=== PATIENT | female | born 1965 | race Caucasian/White ===

== ENCOUNTER 2016-07-28 12:17 | Inpatient (IN) | payer OTHER ==
[~2016-07-28] VITALS: Ht 160 cm; Wt 75.6 kg
[2016-07-28] VITALS (11 sets, daily range): BP systolic 116–147; BP diastolic 58–99; PULSE 61–76; RESP 14–19; O2SAT 93–97
[~2016-07-28 12:17] MED LIST: ATEN100T PO; ATOR20TA PO; CELE200C PO; GABA600T2 PO; INDA1.252 PO; LOSA50TA37 PO; Lactated Ringer's 1,000 ML IV ONE; METF500T PO; OMEP20TA86 PO; SERT25TA2 PO; Vancomycin Inj 1,000 MG in IV Premix 1 EACH IV ONE
[2016-07-28] MEDS ORDERED: Vancomycin 1,000mg/200 mL NS IV ONE (12:35)
[2016-07-28] MEDS ORDERED: CeFAZolin Inj 2 gm / 50mL D5W IV ONE (12:35)
--- NOTE | 2016-07-28 12:53 | PCM.HPANE ---
Patient Data Surgeon Admitting Provider: Attending Provider:Paul Sears MD Primary Care Physician:Griselda Rogers Other Provider: Reason for Visit Left Knee Arthritis LEFT KNEE ARTHRITIS Ht/WT & BMI Height (Feet): 5 Height (Inches): 3 Weight (Kilograms): 75.6 Body Mass Index 29.00 Allergies Coded Allergies: ceftriaxone (Verified Allergy, Unknown, 12/26/15) clindamycin (Verified Allergy, Unknown, 12/26/15) Past Anesthesia History Anesthesia History: Denies:: Abnormal Airway, Anesthesia Reactions, Difficult Intubation, Fam Anesthesia Reaction (dad with ether) Diabetes History Hx Diabetes?: Yes Type of Diabetes: Type II Glycemic Control: Oral Medication Current Bedside Blood Glucose: 126 MRSA MRSA: No Medications Hypertension Medication: Yes Home Meds Incl Beta Dany: No Reported Medications Metformin (Glucophage)500 Mg [id number] Mg PO BID Ref 0 07/25/16 Indapamide 1.25 Mg Tablet1.25 Mg PO DAILY #30 TABLET 07/24/16 Losartan Potassium 50 Mg Fhejnu620 Mg PO DAILY 07/24/16 Atorvastatin (Lipitor)20 Mg Hgcgaz63 Mg PO DAILY Ref 0 07/24/16 Sertraline HCl (Zoloft)25 Mg Olpppo34 Mg PO DAILY 30 Days Ref 0 07/24/16 Omeprazole 20 Mg Tablet.dr20 Mg PO DAILY 07/24/16 Gabapentin 600 Mg Oxisfp855 Mg PO TID Ref 0 07/24/16 Celecoxib (Celebrex)200 Mg Uowywmf709 Mg PO DAILY #30 CAPSULE Ref 0 07/24/16 Discontinued Reported Medications Atenolol 100 Mg Nfbqpz135 Mg PO DAILY Ref 0 07/24/16 History History of ENT Problems?: No HEENT History: Denies:: Abnormal Airway Cataracts Difficult Intubation Dysphagia Glaucoma Hearing Problem Sinus Problem TMJ Hx of Heart Problems?: Yes Cardiovascular History: Positive for:: Atrial Fibrillation (paroxysmal flutter - not for a "while") Hypertension Irregular Heartbeat (a fib) Denies:: AICD Chest Pain Congestive Heart Failure Coronary Artery Disease Edema Heart Murmur Pacemaker Peripheral Vascular Rheumatic Fever Hx of Respiratory Problem?: No Respiratory History: Denies:: Asthma COPD Emphysema Oxygen Administration Pneumonia Tuberculosis Use of C-PAP Machine Hx Neurologic Problems?: Yes Neurological History: Positive for:: Headaches (not often) Seizures (as child, not since age 2 ) Denies:: CVA Multiple Sclerosis Parkinson's Disease Hx of GI Problems?: Yes Gastrointestinal History: Positive for:: Gastroesphageal Reflux Denies:: Gall Bladder Disease Hepatitis Hiatal Hernia Liver Disease Hx of Problems?: No Genitourinary History: Denies:: Kidney Stones Urinary Tract Infection Female Hx: Denies:: Currently (HX OF TUBAL AND ABLATION) Problems with Breasts? Skin History: Denies:: History Skin Disorders? Pressure Ulcers Hx Musculoskeletal Problems?: Yes Musculoskeletal History: Positive for:: Back Injury (low back fusion) Musculoskeletal Trauma (left knee current admission problem) Osteoarthritis Denies:: Fibromyalgia Joint Replacement Myasthenia Gravis Hx of Psycho/Social Problems?: Yes Psycho Social History: Positive for:: Anxiety Hx Depression Hx Surgeries?: Yes (GILBERTO KNEE;GILBERTO SHOULDER; TUBAL; 2 BLADDER, lumbar fusion) Hx Any Other Health Problems?: Yes Other History: Denies:: Cancer Thyroid Disease History Blood Transfusions: Positive for:: Accept Blood Products? Denies:: Blood Transfusions Hx Diabetes: YesBedside Blood Glucose: 126 Hx Alcohol Use: NoAlcoholic Drinks Per Day: rarely- yearly maybeHx Substance Use: No Smoking Status: Never Smoker Have You Smoked inLast 12 mo: No Stop/Bang Treated for Sleep Apnea?: No Do You Have a CPAP Machine?: No S-Snoring: Do You Snore Loudly: No T-Tired: feel tired, fatigued: No O-Obsered: Observed not breath: No P-Blood Pressure: treated: Yes B- Body Mass Index > 35 kg/m2: No A- Age over 50: Yes N- Neck Large Circumference: No G- Gender Male: No DEACON Total Score: 2 DEACON Risk Assessment: Low Risk, <3 Yes Risk Assessment Category Category 1A: Patient has history of documented sleep apnea, and HAS NOT received any narcotic, sedative or anesthesia administration during this stay. Category 1B: Patient has history of documented sleep apnea, and HAS received any narcotic , sedative or anesthesia administration during this stay Category 2: Patient has SUSPECTED Obstructive Sleep Apnea, and HAS received any narcotic , sedative or anesthesia administration during this stay. Category 3: Patient has SUSPECTED Obstructive Sleep Apnea and HAS NOT received narcotic, sedative or anesthesia administration during this stay. Category 4: Outpatient in Procedural Areas with known sleep apnea or who screen positive for High Risk via the STOP/BANG questionnaire. Exam Exam Vital Signs Vital Signs Date Time Temp Pulse Resp B/P Pulse Ox O2 Delivery O2 Flow Rate FiO2 07/28/16 12:42 36.1 76 17 147/99 96 Room Air General Appearance: Oriented X3 HEENT/AIRWAY: MP 2 Lungs: Normal Air Movement Heart: Regular Rate/Rhythm Meds/Labs/Diagnostics Admission Meds Current Medications Lactated Ringer's 1,000 ml @ 120 mls/hr Q8H20M ONCE IV Last administered on 12:35; Start 07/28/16 at 05:00; Stop 07/28/16 at 13:19 Vancomycin/0.9 % Sod Chloride/ Premix (Vancomycin Inj/ IV Premix) 200 ml @ 133.333 mls/hr PREOP ONCE IV Last administered on 07/28/16 12:41; Start 07/28 at 06:00; Stop 07/28/16 at 07:29; Status DC Bedside Blood Glucose: 126 Plan Impression Patient chart reviewed, patient interviewed and anesthestic plan with risks, benefits, and alternatives discussed, and informed consent obtained. NPO Status: 07/27/16 ASA Physical Status: ASA2 Mod Systemic Disease Anesthetic Plan: Regional Block, SAB Bene/Risks/Altern/Consents: Yes HP Complete Prior to Induction: Yes King Sanders MD Jul 28, 2016 12:53
--- NOTE | 2016-07-28 13:08 | PCM.ORTHOP ---
Orthopedic Operative Report Date of Service: Jul 28, 2016 Pre Operative Diagnosis Left knee degenerative joint disease Post Operative Diagnosis Same Procedure Left total knee arthroplasty Surgeon Surgeon: Paul Sears MD Assistants: Viktor Rene Indication for Procedure Degenerative joint disease left knee Findings Left knee grade 3/4 chondromalacia medial and lateral compartment Details of Procedure Implants / Components : Meseret Persona Femoral component: 5 narrrow Tibial component: D Tibial insert: 10 medial congruent Patellar component: 32 Anesthesia : GETA Antibiotics : Pre-operative IV antibiotics administered VTE prophylaxis : Teds / SCD's applied to contralateral lower extremity Specimens : none Complications: none Indications: Cara Malik is a 51-year-old female with complaints of progressive left knee pain for several months. Patient xrays were consistent with progressive degenerative joint disease. We, therefore, discussed surgical options / intervention in detail regarding total knee arthroplasty. Indications, risks, complications, potential outcomes and benefits were reviewed in detail within the context of the standard surgical consent form. Both written and verbal consent were obtained. All patient questions were answered. Anesthesia evaluation performed prior to operative intervention for evaluation of medical preparedness to undergo operative intervention and operative stress. Procedure: The patient was identified in the preoperative holding area and the operative extremity was marked. The patient was brought to the operating room and placed supine on the operating table. Operative and Surgical team standard pre- operative protocol was then performed including time-out. The patient then underwent general anesthesia performed by Anesthesia team. A femoral block was placed preoperatively. The patient was then appropriately positioned, all aspects well padded. The lower extremity was then prepped and draped using standard sterile technique. [place] bandage was then used followed by inflation of surgical tourniquet. A standard anterior midline incision to the knee was made using a scapel. Soft tissue exposure was then obtained down to the extensor mechanism. Medial and lateral full thickness skin flaps were developed. Medial para-patellar arthrotomy incision was then made. Synovectomy was performed with sharply dissection. Partial fat pad-ectomy was then performed , followed by subperiosteal soft tissue release of MCL utilizing electrocautery and blunt dissection. The patella was then everted. Osteophytes were removed with a rongeur. The patella was reamed using the patella reaming clamp. The appropriate sized 3 hole guide was then placed and 3 peg holes were then drilled with the positive stop drill. A provisional patella plate was then applied. The knee was then flexed to 90 degrees. The meniscal remnants and anterior cruciate ligament remnants were then excised. Exposure was obtained to the proximal tibia. Appropriate retractors were placed to gain adequate exposure and to ensure protection of all structures. Extra-medullary tibial guide was then applied and secured after judgements made regarding varus/valgus, rotation , and posterior slope. Tibial cutting guide was then secured and this cut was made, 10 mm from the lateral side. Attention was then turned toward the femur. The knee was maintained in 90 degrees of flexion, exposure was obtained of the distal femur. [place]'s line and the epicondylar axis were then marked. Intra-medullary access was then gained using a drill. The intramedullary femoral alignment guide was then introduced. The attached distal femoral cutting block was then secured and this cut was made. Sizing was then performed followed by four cut cutting guide application. After securing this guide, these cuts were made with retractor protection of all structures. A trial femur component was then placed and found to be satisfactory. Next, flexion and extension gaps were evaluated for space and ligamentous tension; they were noted to be symmetric in both flexion and extension. Final bone preparation of the femur was performed with stem punch for later acceptance of the femoral permanent component, as was sizing and drill preparation for the patellar component. Final bone preparation of the tibia was then performed with stem and fin punch. Sizing was performed with utilization of drop buck technology for maintenance of all parameters. Impression equipment with fin punch was then used for later acceptance of tibial flange. Trial components were then placed. Full extension was achieved, while obtaining stability in all degrees of knee flexion. The extensor mechanism was found to be well balanced without necessity for significant adjustment. All trial components were removed. Bone surfaces were then thoroughly cleansed and dried with utilization of multiple liters of pulsatile antibiotic irrigation.. Cement with antibiotic was mixed on the back table. The tibial component was cemented and impacted, followed by cementing and impaction of the femoral component. Finally, the patellar component was then cemented and impacted into position. . All excessive cement was removed from the surgical field. The knee was brought out into full extension as the cement was allowed to fully cure. The polyethylene tray was then inserted and secured. The tourniquet was released and hemostasis was achieved with compression and electrocautery. A local anesthetic concoction was injected in multiple soft tissue sites including bupivicaine 40mg, ketorolac, vancomycin, morphine and then exparel was used. Medial para-patellar arthrotomy incision was then secured with running barbed # 2 PDO/Stratafix in slight flexion. Next 2-0 vicryl sutures were used for the subcutaneous tissue. 3-0 stratafix running sutures were placed in the skin. Sterile dressing was applied, followed by a knee immobilizer. The patient was awakened from anesthesia, found to be neurovascularly intact, and taken to the recovery room in good condition. DAYCARE DIRECTOR SURGEON: During the operation, the services of physician clerical administrative assistant were medically indicated and necessary to provide exposure of the operative site for the surgical procedure and to maintain the limb in a proper position to carry out the operation safely and efficiently. Without the qualified registered nurse first assistant being present, it would have extended the operative procedure and made the procedure technically more difficult to perform. I discussed at length the risks, complications and implications of tobacco products and its effect on the treatment plan and outcomes. The patient has voiced understanding and has agreed to cease consumption of such products for a minimum of the duration of the entire course of treatment. Weight-bear as tolerated physical therapy. Dressing change in 2-3 days. Keep dressing clean dry and intact. Discharged on Xarelto 12 days, [place] and [place]. Keep abduction pillow on at all times when in bed for the next 4 weeks. Follow-up with PA in 2 weeks with dressing change with new Steri- Strips. Follow-up with PA in 6 weeks until fully mobilized. Patient may follow -up with me at 12 weeks if needed. Please keep the affected extremity elevated when possible. Continue posterior hip cautions. You may use ice and/or heat as needed for comfort. All questions and concerns were addressed with patient/ family. Please feel free to call with any further questions, comments, and/or concerns. Grafts, Implants: Implants-See Implant Record Complications There were no periprocedural complications identified. Condition Stable Anesthetic Administered: GA Catheters: None Output, Estimated Blood Loss: 50 Blood Admin during surgery: No Surgical Cast or Splint: Knee Immobilizer Surgical Specimen Removed: No Specimen sent to Pathology: No copies to: Paul Sears MD, Christopher L MD Jul 28, 2016 13:08
[2016-07-28] MEDS ORDERED: Sodium Biphos-Phos 133 mL Enema RECTAL PRN (13:10)
[2016-07-28] MEDS ORDERED: Vancomycin Dose per Pharmacist XX ONE (13:10)
[2016-07-28] MEDS ORDERED: Ketorolac 15 mg/mL Inj IVPUSH PRN (13:10)
[2016-07-28] MEDS ORDERED: diphenhydrAMINE 25 mg Capsule PO PRN (13:10)
[2016-07-28] MEDS ORDERED: Polyethylene Glycol (PEG) 17 Gm Powder PO PRN (13:10)
[2016-07-28] MEDS ORDERED: Magnesium Hydroxide 10 mL Oral Concentration PO PRN (13:10)
[2016-07-28] MEDS ORDERED: CeFAZolin Inj 2 GM in IV Premix 1 EACH IV ONE (13:15)
[2016-07-28] MEDS ORDERED: DEXTROSE 5% IV ONE (13:34)
[2016-07-28] MEDS ORDERED: GENTAMICIN IV ONE (13:34)
[2016-07-28] MEDS ORDERED: Lactated Ringer's 500 ML IV PRN (13:38)
[2016-07-28] MEDS ORDERED: Lactated Ringer's 1,000 ML IV SCH (13:38)
[2016-07-28] MEDS ORDERED: Atropine 0.4 mg/mL Inj IVPUSH PRN (13:40)
[2016-07-28] MEDS ORDERED: HYDROmorphone 1 mg/mL Inj IVPUSH PRN (13:40)
[2016-07-28] MEDS ORDERED: MetoCLOpramide 5 mg/mL 2 mL Inj IVPUSH PRN (13:40)
[2016-07-28] MEDS ORDERED: hydrALAZINE 20 mg/mL Inj IVPUSH PRN (13:40)
[2016-07-28] MEDS ORDERED: fentaNYL-PF 50 mCg/mL 2 mL Inj IVPUSH PRN (13:40)
[2016-07-28] MEDS ORDERED: Labetalol 5 mg/mL 4 mL Inj IV PRN (13:40)
[2016-07-28] MEDS ORDERED: EPHEDrine Sulfate 50 mg/mL Inj IVPUSH PRN (13:40)
[2016-07-28] MEDS ORDERED: Ondansetron 2 mg/mL 2 mL Inj IVPUSH PRN (13:40)
[2016-07-28] MEDS ORDERED: Phenylephrine 10,000 mCg/mL Inj IVPUSH PRN (13:40)
[2016-07-28] MEDS ORDERED: Bacitracin 50,000 unit Inj IRRIGATION ONE (14:31)
[2016-07-28] MEDS ORDERED: Hip/Knee Infiltration Cocktail IM ONE ×7 (15:07)
[2016-07-28] MEDS ORDERED: Bupivacaine Liposome 1.3% 20 mL Inj INFILTRATE ONE (15:08)
--- NOTE | 2016-07-28 16:38 | DRSVH ---
PROCEDURE: X-RAY LEFT KNEE, ONE OR TWO VIEWS ([id number]) INDICATIONS: s/p TKA TECHNIQUE: 3 view(s) of the knee acquired. COMPARISON: None. FINDINGS: Bones: Patient is status post knee joint arthroplasty. Hardware components are in expected position s. Visualized bony structures are intact. Soft tissues: Overlying postoperative changes are noted. IMPRESSION: Status post left knee arthroplasty as above. Dictated by: Nava Ramos M.D. on 07/28/2016 at 16:36 Approved by: Nava Ramos M.D. on 07/28/2016 at 16:37
[2016-07-28] MEDS ORDERED: Lidocaine PF 1% 30 mL Inj ONE (17:03)
[2016-07-28] MEDS ORDERED: fentaNYL-PF 50 mCg/mL 2 mL Inj ONE (17:03)
[2016-07-28] MEDS ORDERED: Propofol 10,000 mCg/mL 20 mL Inj ONE (17:03)
[2016-07-28] MEDS ORDERED: Ondansetron 2 mg/mL 2 mL Inj ONE (17:03)
[2016-07-28] MEDS: 0.9% Sodium Chloride 1,000 ML IV SCH ×2 (17:28→23:09)
[2016-07-28] MEDS: Sodium Chloride LOK Flush 10 mL Syringe IV SCH (17:29)
--- NOTE | 2016-07-28 17:33 | PCM.CONPHA ---
Subjective Date of Service: Jul 28, 2016 Reason for Pharmacy Consult: Vancomycin Dosing Objective Vital Signs Date Time Temp Pulse Resp B/P Pulse Ox O2 Delivery O2 Flow Rate FiO2 07/28/16 17:07 36.6 61 16 125/81 96 Room Air 07/28/16 16:59 14 94 07/28/16 16:55 36.1 63 14 116/63 94 Room Air 07/28/16 16:40 71 15 128/65 93 Room Air 07/28/16 16:35 66 14 121/67 93 Room Air 07/28/16 16:30 72 14 127/67 95 Room Air 07/28/16 16:25 76 19 124/66 96 Room Air 07/28/16 16:25 15 95 07/28/16 16:22 36.4 122/58 07/28/16 12:42 36.1 76 17 147/99 96 Room Air Weight (Kilograms): 75.6 Height (Feet): 5 Height (Inches): 3 Assessment/Plan Assessment/Plan Vanco per Rx Indication: S/P Left TKA WBC: 6.7; no temp Pre-Op dose given @ 1241 Post-Op 1 time dose to be given at 0030, about 12 hrs after Pre-Op dose, per protocol Elliot White PharmD Jul 28, 2016 17:33
--- NOTE | 2016-07-28 19:53 | NUR ---
POST-OP Patient received from PACU via a hospital bed. On room air. IVF started. IFC intact and draining to faviola colored UO. Dressing is CDI. Patient denies pain/nausea/SOB. BLE is numb. Patient had a fem block and a spinal anesthesia. Able to wiggle toes. + pulse, capillary refill WNL. Oriented to room, call light and bathroom. (Pls. refer to post-op grid for assessments).
[2016-07-28] MEDS: HYDROcodone-APAP 5-325 mg Tablet PO PRN ×2 (20:22→23:54)
[2016-07-28] MEDS: Senna-Docusate 8.6-50 mg Tablet PO SCH (20:22)
[2016-07-29] MEDS: Sodium Chloride LOK Flush 10 mL Syringe IV SCH ×3 (00:30→16:11)
[2016-07-29] MEDS ORDERED: Vancomycin Inj 1,000 MG in IV Premix 1 EACH IV ONE (00:30)
[2016-07-29] MEDS: HYDROcodone-APAP 5-325 mg Tablet PO PRN ×5 (04:03→21:20)
[2016-07-29 05:33] VITALS: BP 120/73; PULSE 65; RESP 16; O2SAT 95
[2016-07-29 06:07] LABS: BASOPHILS % (AUTO) 0.1 % (0-3); EOSINOPHILS % (AUTO) 0 % (0-5); MONOCYTES % (AUTO) 8.3 % (4-12); Mean Corpuscular Hemoglobin 28.3 pg (27.0-35.0); Mean Corpuscular Volume 85.5 fL (81-100); NEUTROPHILS % (AUTO) 85.4 % (40-74); Platelet Count 216 bil/L (150-400)
[2016-07-29] MEDS: Pantoprazole 40 mg ER24 Tablet PO SCH (06:17)
--- NOTE | 2016-07-29 06:34 | NUR ---
PT has had a good night. Pain well managed with 2 vicodin every 4 hours and one dose of toradol. Noble is c/d/i. +DP/PT pulses and strong DF/PF. Full sensation to BLE. Refused SCD to LLE. WIll advance to CC diet this am. IV heplocked this am. Taking adequate po and abx finished.
--- NOTE | 2016-07-29 07:16 | PCM.ANEP1 ---
Post Anesthesia Phase 1 PACU Phase 1 Assessment Date of Service: Jul 28, 2016 Vital Signs Vital Signs Date Time Temp Pulse Resp B/P Pulse Ox O2 Delivery O2 Flow Rate FiO2 07/29/16 05:33 36.7 65 16 120/73 95 Room Air 07/28/16 23:53 36.9 68 16 131/76 95 Room Air Anesthetic Administered: Regional Block, SAB Level of Alertness: Awake, talking ECHEVARRIA's with Equal Strength: No (SPINAL AND FEM BLOCK WAS GIVEN. BLE NUMBESS.) Pain: No Pain Scale Score: 4 Lungs: Normal Air Movement Dermatome Level: T12 (Symphysis Pubis) Medhat Wellington MD Jul 29, 2016 07:16
--- NOTE | 2016-07-29 07:17 | PCM.ANEP2 ---
Post Anesthesia Evaluation ASA/CMS Post Anesthesia Date of Service: Jul 29, 2016 VS in Patient's Normal Range?: Yes Resp Stable; Airway Patent?: Yes CV Function & Hydration Stable: Yes Mental Status Recovered?: Yes Pain control Satisfactory?: Yes N/V Control Satisfactory?: Yes Medhat Wellington MD Jul 29, 2016 07:17
[2016-07-29] MEDS: Senna-Docusate 8.6-50 mg Tablet PO SCH ×2 (08:47→20:02)
[2016-07-29] MEDS: 0.9% Sodium Chloride 1,000 ML IV SCH ×2 (08:50→16:50)
[2016-07-29 09:52] VITALS: BP 113/63; PULSE 64; RESP 18; O2SAT 96
--- NOTE | 2016-07-29 10:34 | PCM.PNORTH ---
Subjective Date of Service: Jul 29, 2016 Visit Information: Reason for Visit Left Knee Arthritis Surgery/Surgery Date L TKA 07/28/16 Post-Op Day # 1 Date of Admission: Jul 28, 2016 at 17:02 Hospital Day # Subjective A patient complains of incisional pain which is well managed with [place] and Toradol. She has been out of bed already with therapy. 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 She requests home health physical therapy. Postop General: No Complaints, No Shortness of Breath, No Chest Pain, Good Appetite Pain Management: PO Objective Exam Objective Patient is seen sitting up in bed Vital Signs and I/O Vital Sign - Last Date Time Temp Pulse Resp B/P Pulse Ox O2 Delivery O2 Flow Rate FiO2 07/29/16 09:52 36.7 64 18 113/63 96 Room Air Intake and Output 07/28/16 07/28/16 07/29/16 Cumulative From/Thru 15:00 23:00 07:00 07/24/16 11:50 - 07/29/16 05:33 Intake Total 1315 ml 580 ml 1950 ml 3845 ml Output Total 50 ml 925 ml 1550 ml 2525 ml Balance 1265 ml -345 ml 400 ml 1320 ml Intake Oral 530 ml 800 ml 1330 ml IV Total 1315 ml 50 ml 1150 ml 2515 ml Output Urine Total 925 ml 1550 ml 2475 ml Estimated Blood Loss 50 ml 50 ml # Bowel Movements 0 0 0 Lab & Micro Results Laboratory Tests Test 07/29/16 05:48 White Blood Count 11.0th/mm3 (3.8-10.1) Red Blood Count 4.13mil/mm3 (3.90-5.20) Hemoglobin 11.7g/dL (12.0-15.6) Hematocrit 35.3% (35.0-46.0) Mean Corpuscular Volume 85.5fL (81-100) Mean Corpuscular Hemoglobin 28.3pg (27.0-35.0) Mean Corpuscular Hemoglobin Concent 33.1% (32.0-37.0) Red Cell Distribution Width 12.8% (12.3-15.4) Platelet Count 216bil/L (150-400) Neutrophils (%) (Auto) 85.4% (40-74) Lymphocytes (%) (Auto) 5.9% (14-46) Monocytes (%) (Auto) 8.3% (4-12) Eosinophils (%) (Auto) 0% (0-5) Basophils (%) (Auto) 0.1% (0-3) Result Diagram: 07/29/16 0548 General Appearance: Alert, Oriented X3, Cooperative, No Acute Distress Extremities: Distal Pulses Palpable, No Compartment Syndrom Noted, Thigh & Calf Soft/Nontender Postop Sensory Motor: Distal Motor Intact, NVI Distally SURGICAL WOUND : Wound Location/Description Left lower extremity dressing is clean, dry and intact. Thigh-high PATTY hose in place and covered by elastic bandage from toes to thigh Incision General Appearance: No Direct Observation Activity: Activity per PT, Ambulate with PT Catheters: Urethral 2 [address] [place] Assessment & Plan Impression Status post left TKA Problems: Plan Weightbearing: Weightbearing as tolerated with walker DVT prophylaxis: Xarelto 10 mg PO Q Day 2 weeks followed by aspirin 325 mg twice a day 4 weeks Physical therapy for transfers, progressive ambulation, therapeutic exercise Wound care: PA will change dressing tomorrow ARI [place] today Discharge plan: Discharge home in 1-2 days. Patient does not have transportation. She requests home health physical therapy. Follow-up plan: In 2 weeks at [facility] with PA for wound check and at [address] Sears with x-rays Pain Management: Celebrex, Toradol, [place] VTE Prophylaxis: SCDs, PATTY Hose, Other (Xarelto) Resuscitation Status: CPR: Attempt Resuscitation Delisa Betancourt PA-C Jul 29, 2016 10:34
[2016-07-29 14:39] VITALS: BP 103/58; PULSE 67; RESP 18; O2SAT 98
--- NOTE | 2016-07-29 15:10 | NUR ---
Social work Note - Initial assessment Cara Malik is a 51 yr old who was admitted for left knee surgery. EMR reviewed: Pt has [facility] and her PCP is Griselda GOMEZ. Pt was given paperwork for DPOA which she will fill out with her son. No ocean transportation intermediary care insurance, no VA benefits. VP DESIGN met with pt - introduced d/c planning and explained SW role. Pt lives at home with her son. She is independent at baseline. She anticipates going home with a walker and physical therapy. 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 She would like a referral to Home Health. VP DESIGN provided choices list - pt has no preference - reviewed vendor calendar and identified [facility]. VP DESIGN spoke with Tush[facility] at [place] who call VP DESIGN back regarding referral. Plan: Home with son in POV - exploring Home Health for PT with [facility]. LM Navarro
--- NOTE | 2016-07-29 16:22 | NUR ---
Social work note - Continued d/c plan FOREMAN/PROJECT MANAGER spoke with [facility] who states that they are not able to accept pt for PT. FOREMAN/PROJECT MANAGER met with pt - provided pt with list of outpt PT clinics who have extended hours. Pt states that she will be able to get to therapy with her son driving after 5:00 when he returns from work. Plan: Home with son in POV and outpt PT. LM Navarro
--- NOTE | 2016-07-29 19:00 | NUR ---
Mobility/villavicencio Pt tolerated mobility w/PT and up in room w/staff Used FWW/GB/CGA Occasion cues for hand and leg placement. Villavicencio DC'd 1210, tip intact 1720 pt voided 100 in toilet attempted to void at 1830, no success. Bladder scan = 160. Enc patient to drink more fluids. Continue to monitor
[2016-07-29 20:15] VITALS: BP 105/67; PULSE 63; RESP 16; O2SAT 97
[2016-07-30] MEDS: Sodium Chloride LOK Flush 10 mL Syringe IV SCH ×3 (02:57→17:28)
[2016-07-30] MEDS: HYDROcodone-APAP 5-325 mg Tablet PO PRN ×4 (02:57→17:24)
--- NOTE | 2016-07-30 04:29 | NUR ---
Pain/mobility pt has complained of pain in her L knee 6/10 in intensity. she has been taking 2 tabs of [place] and reports good pain control. she has been getting up and walking to the bathroom SBA with FWW. she has been voiding urine without difficulty this shift. hourly rounding continues.
[2016-07-30] MEDS: 0.9% Sodium Chloride 1,000 ML IV SCH ×2 (05:09→14:51)
[2016-07-30 06:13] VITALS: BP 97/61; PULSE 72; RESP 16; O2SAT 95
[2016-07-30] MEDS: Pantoprazole 40 mg ER24 Tablet PO SCH (06:36)
[2016-07-30] MEDS: Senna-Docusate 8.6-50 mg Tablet PO SCH ×2 (07:56→21:19)
[2016-07-30] MEDS: Ondansetron 2 mg/mL 2 mL Inj IVPUSH PRN ×3 (08:52→17:24)
--- NOTE | 2016-07-30 08:59 | PCM.PNORTH ---
Subjective Date of Service: Jul 30, 2016 Visit Information: Reason for Visit Left Knee Arthritis Surgery/Surgery Date L TKA 07/28/16 Post-Op Day # Date of Admission: Jul 28, 2016 at 17:02 Hospital Day # Subjective Complains of incisional pain. She has nausea and vomiting this morning when attempting to get out of bed with therapy. She walked 50 feet with therapy yesterday. Postop General: No Complaints, No Shortness of Breath, No Chest Pain, Good Appetite Pain Management: PO Objective Exam Objective Patient is seen sitting up in bed Vital Signs and I/O Vital Sign - Last Date Time Temp Pulse Resp B/P Pulse Ox O2 Delivery O2 Flow Rate FiO2 07/30/16 06:13 36.8 72 16 97/61 95 Room Air Intake and Output 07/29/16 07/29/16 07/30/16 Cumulative From/Thru 15:00 23:00 07:00 07/24/16 11:50 - 07/30/16 06:14 Intake Total 1522 ml 600 ml 5967 ml Output Total 500 ml 350 ml 3375 ml Balance 1022 ml 250 ml 2592 ml Intake Oral 1522 ml 600 ml 3452 ml IV Total 2515 ml Output Urine Total 500 ml 350 ml 3325 ml Estimated Blood Loss 50 ml # Voids 1 1 # Bowel Movements 0 0 Result Diagram: 07/29/16 0548 General Appearance: Alert, Oriented X3, Cooperative, No Acute Distress Extremities: Distal Pulses Palpable, No Compartment Syndrom Noted, Thigh & Calf Soft/Nontender Postop Sensory Motor: Distal Motor Intact, NVI Distally SURGICAL WOUND : Wound Location/Description Left knee: Surgical dressing is removed. Wound is clean dry and intact. Steri- Strips are in place. The wound is covered with an island dressing and thigh high compression stockings are reapplied. Activity: Activity per PT, Ambulate with PT Catheters: None Assessment & Plan Impression Status post left TKA Problems: Plan Weightbearing: Weightbearing as tolerated with walker DVT prophylaxis: Xarelto 10 mg PO Q Day 2 weeks followed by aspirin 325 mg twice a day 4 weeks Physical therapy for transfers, progressive ambulation, therapeutic exercise Wound care: Dressing was changed today to an island dressing. Nursing may reinforce our change dressing if saturated Discharge plan: Discharge home tomorrow. 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 She lives with her son but he works all day. Orders placed for home health physical therapy. Follow-up plan: In 2 weeks at [facility] with SAUL for wound check and at [address] Sears with x-rays Pain Management: [place], Celebrex VTE Prophylaxis: SCDs, PATTY Luther, Other (Xarelto) Resuscitation Status: CPR: Attempt Resuscitation SacatonDelisa Hogan PA-C Jul 30, 2016 08:59
--- NOTE | 2016-07-30 09:02 | NUR ---
Pain/Nausea Pt reporting pain 7/10 at start of shift, two [place] given. After 45 minutes pt with 200cc emesis, rates pain 8/10. Zofran given and PO Dilaudid given to better control pain. Will reassess regularly. Addendum: 07/30/16 at 1755 by FARIHA BAKER RN Pain continued to be more intense for pt today than previous days. Pt rates pain at 8/10 before [place] is given and 5 or 6 afterwards. Refused additional Dilaudid this afternoon. Ice applied. Zofran given x3 today before meals and pain medications. Effective preventing emesis however pt continues to c/o queasiness.
[2016-07-30 10:09] VITALS: BP 112/67; PULSE 56; RESP 16; O2SAT 93
--- NOTE | 2016-07-30 10:25 | NUR ---
Social Work: Readiness for d/c Data: Pt is on day 2 of hospitalization. discussed pt with [employer], pt likely to d/c tomorrow. PT currently recommending HH with possible progress to outpt PT. PT to work on stairs with pt either today or tomorrow morning. [employer] will continue to follow. Assessment: Pt who is independent at baseline. Plan: Pt will d/c home via POV when medically stable, likely tomorrow. Possible HH need, [employer] to follow post PT evaluation. MADHAVI Ricci
--- NOTE | 2016-07-30 12:04 | PCM.DIORTH ---
Ortho Discharge Instruction Date of Service: Jul 30, 2016 Dates of Hospitalization Date of Hospital Admission Jul 28, 2016 at 17:02 Providers Admitting Physician: Paul Sears MD Primary Care Physician: Griselda Rogers Attending Physician: Paul Sears MD Diet Discharge Diet: No restrictions Activity Discharge Activity-General: Balance rest and activity, Elevate & ice extremity , No driving while taking narcotic Left Lower Extremity: Weight Bearing as tolerated Discharge Assist Device: Front Wheeled Walker Dressing and Incisional Care Discharge Dressing Care: Keep dressing clean, dry & intact Discharge Hygiene: May shower (see instructions below), DO NOT soak incision under water, NO bathtub, hot tub or whirlpool Additional Instructions Discharge Instructions Ice the knee 6-8 times a day for 20-30 minutes at a time Every hour of the day that you are awake, get up and walk or do some of the exercises. Gradually increase each day Push yourself with bending and straightening the knee. It will hurt but you need to push yourself. Every afternoon lay down with the leg up on pillows above the level of the heart to help decrease swelling. Continue wearing thigh-high compression stockings for 3-4 weeks The patient may shower 5 days after surgery if the wound has no drainage present. Wound may be uncovered to shower. Let soap and water run over the wound , pat dry and apply a new dressing. Home Health PT has been ordered. DVT prophylaxis: Take Xarelto 10 mg once a day for a total of 14 days after surgery, then you will take aspirin 325 mg twice a day for 4 more weeks. Follow Up Plan Follow Up Plan At [facility] in 2 weeks with SAUL for wound check, and at [address] Sears with x-ray Call your provider for: Fever, Chills, Shortness of breath, Vomitting, Drainage at incision, Wound redness Delisa Betancourt PA-C Jul 30, 2016 12:04
[2016-07-30] MEDS ORDERED: HYDR-4003 PO (12:14)
[2016-07-30] MEDS ORDERED: RIVA10TA PO (12:14)
[2016-07-30] MEDS ORDERED: DOCU-41 PO (12:14)
--- NOTE | 2016-07-30 15:57 | NUR ---
Social Work: Continued d/c planning Data: Pt is on day 2 of hospitalization. EMR reviewed. [employer] spoke with UR RN and MD who state that pt is having pain which needs to be controlled before leaving. PT worked with pt who can successfully go up a couple of stairs with assistance but not back down, they are recommending HH. [employer] met with pt at bedside, HH choice list given. Pt states preference for [facility]. MANAGER TECH[employer] TRA[employer] called [facility], spoke with Tushar Rhoades, access given, F2F ready for them to pick up worker when pt is ready for d/c. [employer] will continue to follow. Assessment: Pt who is independent at baseline. Plan: Pt will d/c home either tonight or tomorrow depending on pain control with [facility], PT. [employer] will continue to follow. MADHAVI Ricci
[2016-07-30 21:00] VITALS: BP 137/75; PULSE 67; RESP 16; O2SAT 98
[2016-07-31] MEDS: 0.9% Sodium Chloride 1,000 ML IV SCH ×2 (01:09→11:09)
[2016-07-31] MEDS: HYDROcodone-APAP 5-325 mg Tablet PO PRN ×3 (02:42→16:07)
[2016-07-31] MEDS: Sodium Chloride LOK Flush 10 mL Syringe IV SCH ×3 (02:43→16:30)
--- NOTE | 2016-07-31 05:11 | NUR ---
PAIN Pt has been receiving 2 tabs norco Q4H and PO dilaudid in between for breakthrough pain. pt says with the dilaudid added in the pain is tolerable. she also mentioned having better movement this morning and feeling less stiff. care continues.
[2016-07-31 05:20] VITALS: BP 155/92; PULSE 61; RESP 16; O2SAT 99
[2016-07-31] MEDS: Pantoprazole 40 mg ER24 Tablet PO SCH (06:21)
[2016-07-31] MEDS: Senna-Docusate 8.6-50 mg Tablet PO SCH (09:05)
[2016-07-31 09:12] VITALS: BP 131/76; PULSE 77; RESP 16; O2SAT 97
--- NOTE | 2016-07-31 12:24 | NUR ---
Social Work- Readiness for Discharge Data: EMR reviewed. Pt is on day 3 of hospitalization for left knee arthritis. Pt is not medically stable, anticipate discharge later today. GERMAN spoke with [facility] liaison Tushar Neftaly Iglesias [phone] informing SW that [facility] is not contracted with [facility]. SW spoke with Melchor Churchill liaison [phone] who states the [facility] is not contracted with [facility]. SW called [facility] to inquire about pt, SW awaiting return call regarding insurance eligibility. [facility] states that if [facility] is accepted, services will not begin until the week of August 11. SW spoke with pt at bedside regarding these concerns and that anticipated start date pending insurance acceptance. Pt states that she would be interested in [facility] beginning the week of the if her insurance is accepted. Pt states that she has a caregiving plan, assistance from her son at home, and home PT exercises that she is confident she will be able to complete. Pt anticipated to discharge home with son to transport via POV. eligibility pending. SW continues to follow. Assessment: Pt who would benefit from . Plan: SW to hear back from [facility] regarding insurance eligibility. Pt to discharge home with son to transport via POV. SW continues to follow. Skylar Bui MSW
--- NOTE | 2016-07-31 12:54 | NUR ---
Social Work- Discharge Data: EMR reviewed. Pt is on day 3 of hospitalization for left knee arthritis per H&P. Pt is medically stable to discharge today. Surgery informed SW that pt cannot wait until the for HH PT. Ortho Surgery provided orders for outpt PT. SW updated pt at bedside regarding outpt PT. Pt agreeable to this. Pt to discharge home with son to transport via POV. No discharge needs. Assessment: Pt who is independent at base and who will receive outpt PT. Plan: Pt to discharge today. Pt to receive outpt PT services due to extended wait times for HH. Pt updated and agreeable to plan. Pt to discharge home with son to transport via POV. No discharge needs. MADHAIV Baig
--- NOTE | 2016-07-31 16:09 | PCM.PNORTH ---
Subjective Date of Service: Jul 31, 2016 Visit Information: Reason for Visit Left Knee Arthritis Surgery/Surgery Date L TKA 07/28/16 Post-Op Day # Date of Admission: Jul 28, 2016 at 17:02 Hospital Day # Subjective Status post day #3 left total knee arthroplasty. Patient states she is doing a lot better than yesterday. Her pain is well controlled. She feels like she is ready to go home now and did a lot better with physical therapy. Postop General: No Complaints, No Shortness of Breath, No Chest Pain, Good Appetite Pain Management: PO Objective Exam Objective Patient is alert and oriented 3. Answering questions appropriately. Sitting up in bed and not in any acute distress today. Dressing is clean dry and intact. Patient able to wiggle toes. Calf is soft and non-tender, pulses intact, sensation is full. Patient did much better with physical therapy and their recommendation is updated from unsafe to safe to discharge to home today. Vital Signs and I/O Vital Sign - Last Date Time Temp Pulse Resp B/P Pulse Ox O2 Delivery O2 Flow Rate FiO2 07/31/16 12:59 Room Air 07/31/16 09:12 36.8 77 16 131/76 97 Intake and Output 07/30/16 07/30/16 07/31/16 Cumulative From/Thru 15:00 23:00 07:00 07/24/16 11:50 - 07/31/16 05:54 Intake Total 20 ml 200 ml 6187 ml Output Total 700 ml 4075 ml Balance 20 ml -500 ml 2112 ml Intake Oral 200 ml 3652 ml IV Total 20 ml 2535 ml Output Urine Total 700 ml 4025 ml Estimated Blood Loss 50 ml # Voids 1 # Bowel Movements 0 Result Diagram: 07/29/16 0548 Activity: Activity per PT, Ambulate with PT Catheters: None Assessment & Plan Impression Status post day #3 left total knee arthroplasty. Patient doing well and will be discharged to home today. Problems: Plan Weightbearing: Weightbearing as tolerated with walker DVT prophylaxis: Xarelto 10 mg PO Q Day 2 weeks followed by aspirin 325 mg twice a day 4 weeks Physical therapy for transfers, progressive ambulation, therapeutic exercise Nursing may reinforce our change dressing if saturated. Patient may remove the dressing to shower tomorrow, do not soak incision underwater. Try to keep the incision clean and dry, to keep it covered is usually simpler until your next appointment. Discharge plan: Discharge home tomorrow. 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 She lives with her son but he works all day. Orders placed for home health physical therapy, but patient's insurance is not contracted to cover this with any local providers. Gave prescription for outpatient physical therapy. I called [facility] and they will be able to see her Thursday next week and have set up this appointment. She will be encouraged to obtain a ride and some extra help to get to this appointment as we would like her to begin her therapy right away. Patient discharged to home today. Follow-up plan: In 2 weeks at [facility] with SAUL for wound check and at [address] Sears with x-rays VTE Prophylaxis: SCDs, PATTY Luhter, Other (Xarelto) Resuscitation Status: CPR: Attempt Resuscitation Viktro Rene PA-C Jul 31, 2016 16:09
--- NOTE | 2016-07-31 16:15 | PCM.DC.ORT ---
Discharge Summary Date of Service: Jul 31, 2016 Date of Hospital Admission: Jul 28, 2016 at 17:02 Date of Surgery: Jul 28, 2016 Date of Discharge: Jul 31, 2016 Reason for Hospitalization: Left knee osteoarthritis Procedures Performed: Left total knee arthroplasty Hospital Course: Patient presented to [facility] surgical suite for the procedure of Left total knee arthroplasty by Dr. Juvencio Silva on July 28, 2016. Patient was prepped for surgery and the procedure was performed successfully, patient was discharged to PACU under stable condition, tolerated the procedure well. Once stabilized in PACU and pain well controlled, patient was admitted to the hospital floor for observation, pain control, and progression with physical therapy. The first 1-2 days the patient was able to resume a regular diet, void on their own, not having any problems with nausea or vomiting. The patient did not have any adverse falls, reactions, or events were all in the hospital. The patient began working with physical therapy on day one then progressed quite well with reasonable pain control. On day 3 the patient was able to ambulate safely on their own, and pain was controlled sufficiently to be discharged to home with outpatient physical therapy. We will utilize Xarelto 10mg daily for 2 weeks, then aspirin 325 mg by mouth twice a day for 6 weeks for DVT prophylaxis. The patient was discharged to home under stable condition with plan to follow- up with patient at 2 weeks for a postoperative appointment. Diagnosis at Time of Discharge left knee osteoarthritis, post left total knee arthroplasty. Problems: Orthopedic Follow up Plan: In Two Weeks in my clinic Discharge Instructions: Weightbearing: Weightbearing as tolerated with walker DVT prophylaxis: Xarelto 10 mg PO Q Day 2 weeks followed by aspirin 325 mg twice a day 4 weeks Physical therapy for transfers, progressive ambulation, therapeutic exercise Nursing may reinforce our change dressing if saturated. Patient may remove the dressing to shower tomorrow, do not soak incision underwater. Try to keep the incision clean and dry, to keep it covered is usually simpler until your next appointment. Discharge plan: Discharge home tomorrow. 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 She lives with her son but he works all day. Orders placed for home health physical therapy, but patient's insurance is not contracted to cover this with any local providers. Gave prescription for outpatient physical therapy. I called [facility] and they will be able to see her Mitch next week and have set up this appointment. She will be encouraged to obtain a ride and some extra help to get to this appointment as we would like her to begin her therapy right away. Patient discharged to home today. Follow-up plan: In 2 weeks at [facility] with SAUL for wound check and at [address] Sears with x-rays Atorvastatin (Lipitor) 20 Mg Tablet 20 MG PO DAILY Celecoxib (Celebrex) 200 Mg Capsule 200 MG PO DAILY Docusate Sodium (Colace) 100 Mg Capsule 100 MG PO BID PRN PRN For Constipation Gabapentin (Gabapentin) 600 Mg Tablet 600 MG PO TID Hydrocodone-Acetaminophen 5-325 mg (Hydrocodone-Acetaminophen 5-325 mg) 1 Each Tablet 1-2 TABLET PO Q4H PRN PRN For Moderate Pain Max 8 per day Indapamide (Indapamide) 1.25 Mg Tablet 1.25 MG PO DAILY Losartan Potassium (Losartan Potassium) 50 Mg Tablet 100 MG PO DAILY Metformin (Glucophage) 500 Mg Tablet 500 MG PO BID Omeprazole (Omeprazole) 20 Mg Tablet.dr 20 MG PO DAILY Rivaroxaban (Xarelto) 10 Mg Tablet 10 MG PO DAILY Sertraline HCl (Zoloft) 25 Mg Tablet 75 MG PO DAILY Viktor Rene PA-C Jul 31, 2016 16:15
--- NOTE | 2016-07-31 17:00 | NUR ---
DISCHARGE [place] 2 tabs PO has been adequate for pain relief. Tolerating liquids PO and her diet well. Denies nausea. No emesis noted. Denies SOB. Patient has been up and ambulating with SBA and her FWW. Tolerating activity well. Voiding without any problems. Dressing is CDI. Fernando hose is on. IV saline lock d/cd. Discharge instructions, care notes and prescription was given to the patient and she verbalized understanding. Discharged to home with her son and all her personal belongings. Instructed patient to call MD's office in the AM if the out patient PT has not called/scheduled an appointment for her yet. Patient verbalized understanding. Discharged to home with her son and all her personal belongings. (Copy of D/C is in the chart).
== END 2016-07-31 17:10 | disposition home or self-care (01) | DRG 470 ==
LOC: SAS 12:17 → OSC 17:02
PROVIDERS: ADMIT Orthopaedic Surgery; ATTEND Orthopaedic Surgery
PROC: 0SRD0J9 Replacement of Left Knee Joint with Synthetic Substitute, Cemented, Open Approach (ICD-10-PCS; principal; 2016-07-28 13:45)
DX: M17.12 Unilateral primary osteoarthritis, left knee (principal); I10 Essential (primary) hypertension; K21.9 Gastro-esophageal reflux disease without esophagitis